=== PATIENT | male | born 2000 | race Caucasian/White ===

== ENCOUNTER 2025-08-07 19:50 | Emergency (ER) | payer SELFPAY ==
[2025-08-07 19:56] VITALS: BP 141/92
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
== END 2025-08-07 21:56 | disposition home or self-care (01) ==
LOC: EMR 19:50
PROVIDERS: EMERGENCY PHYSICIAN Emergency Medicine; FAMILY PHYSICIAN Family Medicine
DX: R51.9 Headache, unspecified (principal); R03.0 Elevated blood-pressure reading, without diagnosis of hypertension; V49.40XA Driver injured in collision with unspecified motor vehicles in traffic accident, initial encounter; Y92.410 Unspecified street and highway as the place of occurrence of the external cause
CPT/HCPCS: 99282